=== PATIENT | female | born 1995 | race Caucasian/White ===

== ENCOUNTER 2023-03-29 03:10 | Inpatient (IN) | payer OTHER ==
[2023-03-29] MEDS ORDERED: ELECTROLYTE-148 SOLN 1,000 ML IV SCH (06:00)
[2023-03-29 06:58] LABS: BASO % 0.8 % (0-2.0); EOS % 0.5 % (0-4.5); HEMATOCRIT 35.2 % (32.4-45.2); HEMOGLOBIN 12.2 GM/dL (10.7-15.3); LYMPH % 24.2 % (8-40); MCH 32.7 pg (25.7-33.7); MCHC 34.6 g/dl (32.0-36.0); MEAN CELL VOLUME 94.6 fl (80-96); MEAN PLT VOLUME 9.9 fl (7.5-11.1); MONO % 4.8 % (3.8-10.2); NEUT % 69.7 % (42.8-82.8); PLATELET COUNT 225 10^3/uL (134-434); RBC 3.73 M/mm3 (3.60-5.2); RDW 13.2 % (11.6-15.6); WHITE BLOOD COUNT 9.2 K/mm3 (4.0-10.0)
[2023-03-29 07:09] VITALS: BMI 27.4
[2023-03-29] MEDS ORDERED: FENTANYL/BUPIVACAINE/NS/PF - PCEA - 50 ML DISP.SYRIN EP ONE (07:17)
[2023-03-29] MEDS ORDERED: FENTANYL CITRATE/PF 50 MCG/ML VIAL ONE (07:23)
[2023-03-29] MEDS ORDERED: BUPIVACAINE HCL/PF 0.25% (2.5MG/ML) 10 ML VIAL ONE (07:23)
[2023-03-29] MEDS ORDERED: LIDO 2%/EPI 1:200000 PRESRVFRE (20 ML SDVIAL) ONE (07:24)
[2023-03-29] MEDS ORDERED: NALOXONE HCL 0.4 MG/ML VIAL IVPUSH PRN (07:42)
[2023-03-29] MEDS ORDERED: FENTANYL/BUPIVACAINE/NS/PF - PCEA - 50 ML DISP.SYRIN EP SCH (07:45)
[2023-03-29 07:50] LABS: POTASSIUM 4.2 mmol/L (3.5-5.1)
[2023-03-29 07:51] LABS: BLOOD UREA NITROGEN 6.4 mg/dL (7-18); CALCIUM 8.8 mg/dL (8.5-10.1)
[2023-03-29 07:55] LABS: CREATININE 0.6 mg/dL (0.55-1.3)
[2023-03-29 08:28] LABS: PROTHROMBIN TIME (PATIENT) 11.6 SEC (9.7-13.0)
[2023-03-29] MEDS ORDERED: OXYTOCIN 30 UNITS in 0.9% NS 30 UNIT/500 ML INFUS.BAG IVPB ONE (08:38)
[2023-03-29] MEDS ORDERED: OXYTOCIN 30 UNITS in 0.9% NS 30 UNIT/500 ML INFUS.BAG IVPB SCH (09:00)
[2023-03-29] MEDS ORDERED: OXYTOCIN 20 UNITS in 0.9% NS 20 UNIT/1,000 ML INFUS.BAG IV ONE (09:18)
[2023-03-29 09:54] LABS: COCAINE, UR NEGATIVE (NEGATIVE); OPIATES, URI NEGATIVE (NEGATIVE); URINE BARBITURATES NEGATIVE (NEGATIVE)
[2023-03-29 09:55] LABS: METHADONE, UR NEGATIVE (NEGATIVE); PHENCYCLIDINE,URINE NEGATIVE (NEGATIVE); URINE BENZODIAZEPINES NEGATIVE (NEGATIVE)
[2023-03-29 09:59] LABS: URINE AMPHETAMINES NEGATIVE (NEGATIVE)
[2023-03-29] MEDS ORDERED: ACETAMINOPHEN 325 MG TABLET (FP) PO PRN (10:54)
[2023-03-29] MEDS ORDERED: BENZOCAINE 28 GM HEMORRHOIDAL OINTMENT TP PRN (10:54)
[2023-03-29] MEDS ORDERED: WITCH HAZEL 50% (TUCKS) 40 PAD/JAR PAD TP PRN (10:54)
[2023-03-29] MEDS ORDERED: BISACODYL 10 MG SUPP.RECT RC PRN (10:54)
[2023-03-29] MEDS ORDERED: METHYLERGONOVINE MALEATE 0.2 MG/1 ML AMP IM PRN (10:54)
[2023-03-29] MEDS ORDERED: oxyCODONE HCL 5 MG TABLET PO PRN (10:54)
[2023-03-29] MEDS ORDERED: BENZOCAINE 20% 57 GM BOTTLE TP PRN (10:54)
[2023-03-29] MEDS ORDERED: OXYTOCIN 20 UNITS in 0.9% NS 20 UNIT/1,000 ML INFUS.BAG IV SCH (11:00)
[2023-03-29 11:23] LABS: CORD HCO3 23.1 mmHg (20-29); CORD PCO2 57.7 mmHg (30-78); CORD pH 7.221 (7.14-7.44)
[2023-03-29 11:28] LABS: CORD HCO3 22.9 mmHg (20-29); CORD PCO2 52.9 mmHg (30-78); CORD pH 7.254 (7.14-7.44)
[2023-03-29] MEDS: IBUPROFEN 600 MG TABLET (FP) PO PRN (18:39)
[2023-03-30 07:25] LABS: BASO % 0.6 % (0-2.0); EOS % 0.7 % (0-4.5); HEMATOCRIT 32.5 % (32.4-45.2); HEMOGLOBIN 11.4 GM/dL (10.7-15.3); LYMPH % 18.4 % (8-40); MCH 33.6 pg (25.7-33.7); MCHC 35.2 g/dl (32.0-36.0); MEAN CELL VOLUME 95.4 fl (80-96); MEAN PLT VOLUME 10.1 fl (7.5-11.1); MONO % 4.9 % (3.8-10.2); NEUT % 75.4 % (42.8-82.8); PLATELET COUNT 192 10^3/uL (134-434); RDW 13.2 % (11.6-15.6); WHITE BLOOD COUNT 10.9 K/mm3 (4.0-10.0)
[2023-03-30] MEDS ORDERED: DIPHTH,PERTUSS(ACELL),TET 0.5 ML DISP.SYRIN IM ONE (10:00)
[2023-03-30] MEDS: IBUPROFEN 600 MG TABLET (FP) PO PRN ×3 (14:33→23:20)
[2023-03-30 21:53] VITALS: RESP 18
[2023-03-30] MEDS ORDERED: SENNOSIDES/DOCUSATE COMBO (SENNA PLUS) TABLET (UD) PO PRN (22:00)
[2023-03-31] MEDS: IBUPROFEN 600 MG TABLET (FP) PO PRN (05:34)
[2023-03-31 09:22] VITALS: BP 103/71; PULSE 80; TEMP 98.1
== END 2023-03-31 15:10 | disposition home or self-care (01) | DRG 560 ==
LOC: JDEL 03:10 → JLDR 05:45 → J3W 13:45
PROVIDERS: ADMIT Obstetrics & Gynecology; ATTEND Obstetrics & Gynecology
PROC: 10E0XZZ Delivery of Products of Conception, External Approach (ICD-10-PCS; principal; 2023-03-29)
DX: O80 Encounter for full-term uncomplicated delivery (principal); Z3A.39 39 weeks gestation of pregnancy; Z37.0 Single live birth
CPT/HCPCS: 36415; 36600; 59025; 80048; 80307; 82803; 85025; 85610; 85730; 86780; 86850; 86900; 86901; 90715; C9803-CS; U0003; U0005

== ENCOUNTER 2023-12-17 11:21 | Emergency (ER) | payer OTHER ==
[2023-12-17 11:31] VITALS: BP 106/64; PULSE 89; RESP 18; TEMP 98.2; BMI 28.3
[2023-12-17 12:46] LABS: BASO % 0.6 % (0-2.0); EOS % 1.7 % (0-4.5); HEMATOCRIT 41.3 % (32.4-45.2); HEMOGLOBIN 13.7 GM/dL (10.7-15.3); LYMPH % 35.7 % (8-40); MCH 30.8 pg (25.7-33.7); MCHC 33.2 g/dl (32.0-36.0); MEAN PLT VOLUME 7.8 fl (7.5-11.1); MONO % 6.6 % (3.8-10.2); NEUT % 55.4 % (42.8-82.8); PLATELET COUNT 379 10^3/uL (134-434); RBC 4.45 M/mm3 (3.60-5.2); WHITE BLOOD COUNT 5.7 K/mm3 (4.0-10.0)
[2023-12-17 12:49] LABS: PH,URINE 6.5 (5.0-8.0); URINE APPEARANCE CLEAR; URINE BILIRUBIN NEGATIVE (NEGATIVE); URINE COLOR YELLOW; URINE GLUCOSE (UA) NEGATIVE (NEGATIVE); URINE KETONE NEGATIVE (NEGATIVE); URINE LEUK ESTERASE NEGATIVE (NEGATIVE); URINE NITRITE NEGATIVE (NEGATIVE); URINE PROTEIN NEGATIVE (NEGATIVE)
[2023-12-17 13:08] LABS: POTASSIUM 4.2 mmol/L (3.5-5.1)
[2023-12-17 13:11] LABS: BLOOD UREA NITROGEN 10.6 mg/dL (7-18); CALCIUM 9.1 mg/dL (8.5-10.1)
[2023-12-17 13:15] LABS: CREATININE 0.7 mg/dL (0.55-1.3)
[2023-12-17] MEDS ORDERED: KETOROLAC TROMETHAMINE 30 MG/1 ML VIAL IVPUSH ONE (15:10)
[2023-12-17] MEDS ORDERED: KETOROLAC TROMETHAMINE 30 MG/1 ML VIAL ONE (15:13)
== END 2023-12-17 15:49 | disposition home or self-care (01) ==
LOC: JER 11:21
PROC: 3E033NZ Introduction of Analgesics, Hypnotics, Sedatives into Peripheral Vein, Percutaneous Approach (ICD-10-PCS; principal; 2023-12-17)
DX: R10.2 Pelvic and perineal pain (principal); N83.202 Unspecified ovarian cyst, left side
CPT/HCPCS: 36415; 76830-TC; 80048; 81003; 84703; 85025; 87086; 99284-25